=== PATIENT | female | born 1955 | race Caucasian/White ===

== ENCOUNTER 2022-03-27 07:07 | Inpatient (IN) | payer MEDICARE, MEDICAID ==
[~2022-03-27] VITALS: Ht 165.1 cm; Wt 48.1 kg
[2022-03-27] MEDS ORDERED: ONDANSETRON HCL 4MG/2ML INJ IV STA (08:35)
[2022-03-27] MEDS ORDERED: SODIUM CHLORIDE 0.9% 1,000 ML IV ONE (08:45)
[2022-03-27 09:23] LABS: BASOPHILS % 0.1 % (0.0-2.0); EOSINOPHILS % 0.1 % (0.0-5.0); HEMATOCRIT. 38.6 % (36.0-48.0); LYMPHOCYTES % 7.5 % (20.0-50.0); MEAN CORPUSCULAR HEMOGLOBIN 31.8 pg (28.0-32.0); MEAN CORPUSCULAR VOLUME 94.1 fL (81.0-99.0); MONOCYTES % 7.5 % (2.0-8.0); NEUTROPHILS % 84.8 % (40.0-76.0); PLATELET 375 x1000/uL (130-400); RED CELL DISTRIBUTION WIDTH 14.4 % (11.6-14.6)
[2022-03-27 09:30] LABS: INR 1.3; PROTHROMBIN TIME 13.3 sec (9.6-11.0)
[2022-03-27 09:51] LABS: CHLORIDE 88 mEq/L (98-107)
[2022-03-27 10:16] LABS: CLARITY URINE TURBID (CLEAR); COLOR URINE DARK YELLOW (YELLOW); KETONES URINE NEGATIVE (NEGATIVE); LEUKOCYTE ESTERASE URINE 3+ (NEGATIVE); NITRITE URINE NEGATIVE (NEGATIVE); OCCULT BLOOD URINE 3+ (NEGATIVE); PROTEIN URINE 2+ (NEGATIVE); UROBILINOGEN URINE 0.2 E.U./dL (0.2-1.0)
[2022-03-27] MEDS ORDERED: CALCIUM GLUCONATE 100MG/ML 10ML VIAL IV ONE (11:00)
[2022-03-27] MEDS ORDERED: SODIUM BICARBONATE 8.4% 1 MEQ/ML 50ML SYR IV ONE (11:00)
[2022-03-27] MEDS ORDERED: DEXTROSE 50% WATER 50ML SYRINGE IV ONE (11:00)
[2022-03-27] MEDS ORDERED: INSULIN REGULAR (HUMULIN R) 300UNITS/3ML VIAL IV ONE (11:00)
[2022-03-27] MEDS ORDERED: CEFTRIAXONE 1 G PREMIX 50 ML IV NR (11:15)
[2022-03-27] MEDS ORDERED: ALBUTEROL (0.5%) 2.5MG/0.5ML NEB HHN NR (13:30)
[2022-03-27] MEDS ORDERED: MAGNESIUM/ALUMINUM HYDROXIDE/SIMETHICONE 30ML UDC PO PRN (14:00)
[2022-03-27] MEDS ORDERED: GUAIFENESIN 200MG/10ML SUGAR FREE UDC PO PRN (14:00)
[2022-03-27] MEDS ORDERED: CLONIDINE 0.1MG TABLET PO PRN (14:00)
[2022-03-27] MEDS ORDERED: ACETAMINOPHEN 325MG TABLET PO PRN ×2 (14:00)
[2022-03-27] MEDS ORDERED: DOCUSATE SODIUM 100MG CAPSULE PO PRN (14:00)
[2022-03-27] MEDS ORDERED: IPRATROPIUM/ALBUTEROL 0.5-3(2.5)MG/3ML NEB NEB PRN (14:00)
[2022-03-27] MEDS ORDERED: TRAMADOL 50MG TABLET PO PRN (14:00)
[2022-03-27] MEDS ORDERED: NITROGLYCERIN 0.4MG TABLET SL SL PRN (14:00)
[2022-03-27] MEDS ORDERED: SODIUM CHLORIDE 0.9% 1,000 ML IV SCH (14:00)
[2022-03-27] MEDS ORDERED: VANCOMYCIN 500MG PREMIX 100 ML IV NR ×2 (15:30→19:30)
[2022-03-27 16:00] VITALS: BP 102/54
[2022-03-27] MEDS ORDERED: PIPERACILLIN/TAZ 3.375G PREMIX 50 ML IV SCH (16:45)
[2022-03-27] MEDS ORDERED: FLUCONAZOLE 150MG TABLET PO NR (17:00)
[2022-03-27 17:15] LABS: T4 FREE 1.19 ng/dL (0.76-1.46)
[2022-03-27 17:40] LABS: VITAMIN B12 SERUM > 2000.0 pg/mL (211-911)
[2022-03-27] MEDS ORDERED: SODIUM BICARBONATE 8.4% 1 MEQ/ML 50ML SYR IV NR (18:45)
[2022-03-27] MEDS ORDERED: SODIUM POLYSTYRENE SULFONATE 15 G/60 ML BOT PO NR (18:45)
[2022-03-27] MEDS: ENOXAPARIN 30MG/0.3ML SYR SUBCUT SCH (19:01)
[2022-03-27 19:51] LABS: BG BASE EXCESS 1.5 mmol/L (-2.0-2.0); BG CARBOXYHEMOGLOBIN 0.3 % (0.5-1.5); BG DEOXYHEMOGLOBIN 2.3 % (0.0-5.0); BG HCO3 ACT 23.4 mmol/L (22.0-26.0); BG METHEMOGLOBIN 0.3 % (0.0-1.5); BG OXYGEN SATURATION 97.7 % (92.0-98.5); BG OXYHEMOGLOBIN 97.1 % (94.0-97.0); BG PCO2 28.9 mmHg (35.0-45.0); BG PH 7.527 (7.350-7.450); BG PO2 95.6 mmHg (75.0-100.0); BG SAMPLE SITE RIGHT BRACHIAL; BG TOTAL HEMOGLOBIN 11.9 g/dL (12.0-18.0); BG VENT MODE ROOM AIR
[2022-03-27 20:00] VITALS: BP 111/52
[2022-03-27] MEDS ORDERED: ZOLPIDEM TARTRATE 5MG TABLET PO PRN (21:00)
[2022-03-27 21:17] VITALS: BP 111/52
[2022-03-27] MEDS: SODIUM BICARBONATE 150 MEQ in DEXTROSE 5% WATER 1,000 ML IV SCH (21:34)
[2022-03-27] MEDS: PIPERACILLIN/TAZOBACTAM 3.375 G in DEXTROSE 5% WATER 50 ML IV SCH (21:37)
[2022-03-27] MEDS ORDERED: PIPERACILLIN/TAZOBACTAM 3.375 G in DEXTROSE 5% WATER 50 ML IV SCH (22:00)
[2022-03-28] VITALS: BP 100/62
[2022-03-28] MEDS: PIPERACILLIN/TAZOBACTAM 3.375 G in DEXTROSE 5% WATER 50 ML IV SCH ×3 (00:01→21:00)
[2022-03-28] MEDS ORDERED: SODIUM POLYSTYRENE SULFONATE 15 G/60 ML BOT PO NR (01:00)
[2022-03-28] MEDS ORDERED: PANT40TA51 PO (02:40)
[2022-03-28] MEDS ORDERED: METO10TA3 PO (02:40)
[2022-03-28] MEDS ORDERED: METF-414 PO (02:40)
[2022-03-28] MEDS ORDERED: HYDR-4001 PO (02:40)
[2022-03-28 04:00] VITALS: BP 94/46
[2022-03-28 08:00] VITALS: BP 101/48
[2022-03-28] MEDS: PANTOPRAZOLE SODIUM 40 MG/VIAL IV SCH (08:27)
[2022-03-28 09:53] LABS: BG BASE EXCESS 4.1 mmol/L (-2.0-2.0); BG CARBOXYHEMOGLOBIN 0.2 % (0.5-1.5); BG DEOXYHEMOGLOBIN 3.3 % (0.0-5.0); BG HCO3 ACT 26.5 mmol/L (22.0-26.0); BG METHEMOGLOBIN 0.4 % (0.0-1.5); BG OXYGEN SATURATION 96.7 % (92.0-98.5); BG OXYHEMOGLOBIN 96.1 % (94.0-97.0); BG PCO2 32.9 mmHg (35.0-45.0); BG PH 7.524 (7.350-7.450); BG PO2 86.4 mmHg (75.0-100.0); BG SAMPLE SITE RIGHT BRACHIAL; BG TOTAL HEMOGLOBIN 13.2 g/dL (12.0-18.0); BG VENT MODE ROOM AIR
[2022-03-28 10:14] LABS: BASOPHILS % 0.2 % (0.0-2.0); EOSINOPHILS % 0.6 % (0.0-5.0); HEMATOCRIT. 32.1 % (36.0-48.0); HEMOGLOBIN. 11.1 g/dL (12.0-16.0); LYMPHOCYTES % 9.3 % (20.0-50.0); MEAN CORPUSCULAR HEMOGLOBIN 31.7 pg (28.0-32.0); MEAN CORPUSCULAR VOLUME 91.4 fL (81.0-99.0); MEAN PLATELET VOLUME 8.4 fl (7.4-10.4); MONOCYTES % 10.9 % (2.0-8.0); PLATELET 235 x1000/uL (130-400); RED BLOOD CELL COUNT 3.52 mill/uL (4.2-5.4); RED CELL DISTRIBUTION WIDTH 14.4 % (11.6-14.6)
[2022-03-28 11:41] LABS: CHLORIDE 88 mEq/L (98-107); PHOSPHORUS 4.8 mg/dL (2.5-4.9)
[2022-03-28 12:00] VITALS: BP 105/67
[2022-03-28] MEDS ORDERED: VANCOMYCIN 500MG PREMIX 100 ML IV NR (13:00)
[2022-03-28 16:00] VITALS: BP 103/47
[2022-03-28] MEDS: ENOXAPARIN 30MG/0.3ML SYR SUBCUT SCH (17:01)
[2022-03-28 20:00] VITALS: BP 96/53
[2022-03-28] MEDS ORDERED: NALOXONE HCL 0.4MG/ML VIAL IV PRN (23:30)
[2022-03-29] VITALS: BP 127/66
[2022-03-29] MEDS: SODIUM BICARBONATE 150 MEQ in DEXTROSE 5% WATER 1,000 ML IV SCH (02:57)
[2022-03-29 04:00] VITALS: BP 115/64
[2022-03-29 06:47] LABS: BASOPHILS % 0.2 % (0.0-2.0); EOSINOPHILS % 0.7 % (0.0-5.0); HEMATOCRIT. 30.7 % (36.0-48.0); HEMOGLOBIN. 10.7 g/dL (12.0-16.0); LYMPHOCYTES % 12.6 % (20.0-50.0); MEAN CORPUSCULAR HEMOGLOBIN 31.9 pg (28.0-32.0); MEAN CORPUSCULAR VOLUME 91.3 fL (81.0-99.0); MEAN PLATELET VOLUME 8.1 fl (7.4-10.4); MONOCYTES % 9.4 % (2.0-8.0); NEUTROPHILS % 77.1 % (40.0-76.0); PLATELET 207 x1000/uL (130-400); RED BLOOD CELL COUNT 3.37 mill/uL (4.2-5.4); RED CELL DISTRIBUTION WIDTH 14.1 % (11.6-14.6)
[2022-03-29 07:39] LABS: CREATINE KINASE 13 IU/L (26-192); PHOSPHORUS 3.8 mg/dL (2.5-4.9)
[2022-03-29 08:00] VITALS: BP 110/74
[2022-03-29 08:21] LABS: CHLORIDE 81 mEq/L (98-107)
[2022-03-29 08:47] LABS: BG BASE EXCESS 11.1 mmol/L (-2.0-2.0); BG CARBOXYHEMOGLOBIN 0.3 % (0.5-1.5); BG DEOXYHEMOGLOBIN 3.7 % (0.0-5.0); BG FRACTION INSPIRED OXYGEN 21; BG HCO3 ACT 34.4 mmol/L (22.0-26.0); BG METHEMOGLOBIN 0.4 % (0.0-1.5); BG OXYGEN SATURATION 96.3 % (92.0-98.5); BG OXYHEMOGLOBIN 95.6 % (94.0-97.0); BG PCO2 40.2 mmHg (35.0-45.0); BG PO2 81.9 mmHg (75.0-100.0); BG SAMPLE SITE RIGHT RADIAL; BG TOTAL HEMOGLOBIN 11.5 g/dL (12.0-18.0); BG VENT MODE ROOM AIR
[2022-03-29] MEDS ORDERED: KCL 20MEQ/100ML PREMIX 100 ML IV ONE (09:00)
[2022-03-29] MEDS ORDERED: POTASSIUM CHLORIDE 20MEQ TABLET SR PO NR (09:00)
[2022-03-29] MEDS: PIPERACILLIN/TAZOBACTAM 3.375 G in DEXTROSE 5% WATER 50 ML IV SCH ×2 (09:04→21:43)
[2022-03-29] MEDS: PANTOPRAZOLE SODIUM 40 MG/VIAL IV SCH (09:06)
[2022-03-29] MEDS: KCL 20MEQ/100ML PREMIX 100 ML IV SCH ×4 (09:38→18:35)
[2022-03-29] MEDS ORDERED: HYDROCODONE/ACETAMINOPHEN 10/325MG TABLET PO PRN (11:15)
[2022-03-29 12:00] VITALS: BP 105/54
[2022-03-29] MEDS: ONDANSETRON HCL 4MG/2ML INJ IV PRN (12:08)
[2022-03-29 13:07] LABS: A/G RATIO 0.5 (0.7-1.7); ALBUMIN 2.2 g/dL (2.9-4.4); ALPHA-1-GLOBULIN 0.4 g/dL (0.0-0.4); BETA GLOBULIN 0.7 g/dL (0.7-1.3); GAMMA GLOBULINS 2.7 g/dL (0.4-1.8); GLOBULIN TOTAL 4.7 g/dL (2.2-3.9); M-SPIKE Not Observed g/dL (Not Observed); TOTAL PROTEIN SERUM 6.9 g/dL (6.0-8.5)
[2022-03-29] MEDS ORDERED: SODIUM CHLORIDE 0.9% 1,000 ML IV SCH (14:30)
[2022-03-29] MEDS: SODIUM CHLORIDE 0.9% 1,000 ML IV SCH ×2 (15:45→19:55)
[2022-03-29 15:57] LABS: HEPATITIS B SURFACE ANTIGEN NEGATIVE
[2022-03-29 16:00] VITALS: BP 94/64
[2022-03-29] MEDS ORDERED: MORPHINE SULFATE 2 MG/ML CPJ (NOT FOR IM USE) IV PRN (17:00)
[2022-03-29] MEDS: LIDOCAINE 5% PATCH TOP SCH (17:00)
[2022-03-29] MEDS: ENOXAPARIN 30MG/0.3ML SYR SUBCUT SCH (18:34)
[2022-03-29 20:00] VITALS: BP 116/46
[2022-03-30] VITALS: BP 103/51
[2022-03-30 04:00] VITALS: BP 137/75
[2022-03-30 06:15] LABS: BASOPHILS % 0.3 % (0.0-2.0); EOSINOPHILS % 0.8 % (0.0-5.0); HEMOGLOBIN. 10.8 g/dL (12.0-16.0); LYMPHOCYTES % 9.7 % (20.0-50.0); MEAN CORPUSCULAR HEMOGLOBIN 31.8 pg (28.0-32.0); MEAN CORPUSCULAR VOLUME 91.6 fL (81.0-99.0); MEAN PLATELET VOLUME 8.1 fl (7.4-10.4); MONOCYTES % 9.4 % (2.0-8.0); NEUTROPHILS % 79.8 % (40.0-76.0); PLATELET 177 x1000/uL (130-400); RED BLOOD CELL COUNT 3.39 mill/uL (4.2-5.4); RED CELL DISTRIBUTION WIDTH 13.9 % (11.6-14.6)
[2022-03-30 06:26] LABS: CHLORIDE 90 mEq/L (98-107)
[2022-03-30 06:44] LABS: PHOSPHORUS 3.1 mg/dL (2.5-4.9)
[2022-03-30 08:00] VITALS: BP 116/61
[2022-03-30] MEDS: ONDANSETRON HCL 4MG/2ML INJ IV PRN (08:59)
[2022-03-30] MEDS: FAMOTIDINE 20MG/2ML VIAL IV SCH (08:59)
[2022-03-30] MEDS: LIDOCAINE 5% PATCH TOP SCH (09:00)
[2022-03-30 09:10] LABS: HIV SCREEN 4G Non Reactive (Non Reactive)
[2022-03-30] MEDS: SODIUM CHLORIDE 0.9% 1,000 ML IV SCH ×3 (09:15→18:24)
[2022-03-30] MEDS: PIPERACILLIN/TAZOBACTAM 3.375 G in DEXTROSE 5% WATER 50 ML IV SCH ×2 (09:27→21:13)
[2022-03-30] MEDS ORDERED: KCL 20MEQ/100ML PREMIX 100 ML IV NR (11:00)
[2022-03-30 12:00] VITALS: BP 121/59
[2022-03-30] MEDS: FLUCONAZOLE 100MG TABLET PO SCH (12:14)
[2022-03-30] MEDS: ENOXAPARIN 30MG/0.3ML SYR SUBCUT SCH (15:57)
[2022-03-30 16:00] VITALS: BP 118/60
[2022-03-30 20:00] VITALS: BP 108/57
[2022-03-31] VITALS: BP 117/54
[2022-03-31] MEDS: SODIUM CHLORIDE 0.9% 1,000 ML IV SCH ×2 (03:15→13:15)
[2022-03-31 04:00] VITALS: BP 128/84
[2022-03-31 06:30] LABS: BASOPHILS % 0.6 % (0.0-2.0); EOSINOPHILS % 0.7 % (0.0-5.0); HEMATOCRIT. 33.9 % (36.0-48.0); HEMOGLOBIN. 11.6 g/dL (12.0-16.0); LYMPHOCYTES % 11.3 % (20.0-50.0); MEAN CORPUSCULAR HEMOGLOBIN 31.6 pg (28.0-32.0); MEAN CORPUSCULAR VOLUME 92.7 fL (81.0-99.0); MEAN PLATELET VOLUME 8.2 fl (7.4-10.4); MONOCYTES % 9.5 % (2.0-8.0); NEUTROPHILS % 77.9 % (40.0-76.0); PLATELET 176 x1000/uL (130-400); RED BLOOD CELL COUNT 3.66 mill/uL (4.2-5.4); RED CELL DISTRIBUTION WIDTH 14.5 % (11.6-14.6)
[2022-03-31 08:00] VITALS: BP 108/55
[2022-03-31] MEDS: FAMOTIDINE 20MG/2ML VIAL IV SCH (08:53)
[2022-03-31] MEDS: FLUCONAZOLE 100MG TABLET PO SCH (08:53)
[2022-03-31] MEDS: PIPERACILLIN/TAZOBACTAM 3.375 G in DEXTROSE 5% WATER 50 ML IV SCH ×2 (08:55→20:31)
[2022-03-31] MEDS: LIDOCAINE 5% PATCH TOP SCH (08:55)
[2022-03-31 10:08] LABS: PHOSPHORUS 2.6 mg/dL (2.5-4.9)
[2022-03-31] MEDS ORDERED: FLUC100T MT (10:49)
[2022-03-31] MEDS ORDERED: LEVO-65 MT (10:49)
[2022-03-31 12:00] VITALS: BP 103/84
[2022-03-31] MEDS ORDERED: VANCOMYCIN 1,000 MG in DEXT 5% WATER 250 ML IV SCH (13:00)
[2022-03-31] MEDS ORDERED: POTASSIUM CHLORIDE 20MEQ/PACKET PO NR (15:30)
[2022-03-31] MEDS: ENOXAPARIN 30MG/0.3ML SYR SUBCUT SCH (15:51)
[2022-03-31 16:00] VITALS: BP 148/74
[2022-03-31 20:00] VITALS: BP 112/54
[2022-04-01] VITALS: BP 119/54
[2022-04-01] MEDS: SODIUM CHLORIDE 0.9% 1,000 ML IV SCH ×3 (01:25→20:21)
[2022-04-01 04:00] VITALS: BP 130/74
[2022-04-01] MEDS: FLUCONAZOLE 100MG TABLET PO SCH (08:55)
[2022-04-01] MEDS: PIPERACILLIN/TAZOBACTAM 3.375 G in DEXTROSE 5% WATER 50 ML IV SCH (08:55)
[2022-04-01] MEDS: FAMOTIDINE 20MG/2ML VIAL IV SCH (08:55)
[2022-04-01] MEDS: LIDOCAINE 5% PATCH TOP SCH (08:58)
[2022-04-01 09:08] LABS: HEMATOCRIT 33.5 % (36.0-48.0); HEMOGLOBIN 11.5 g/dL (12.0-16.0); MEAN CORPUSCULAR HEMOGLOBIN 31.7 pg (28.0-32.0); MEAN CORPUSCULAR VOLUME 92.7 fL (81.0-99.0); PLATELET 160 x1000/uL (130-400); RED BLOOD CELL COUNT 3.61 mill/uL (4.2-5.4); RED CELL DISTRIBUTION WIDTH 14.1 % (11.6-14.6)
[2022-04-01 10:05] LABS: PHOSPHORUS 1.9 mg/dL (2.5-4.9)
[2022-04-01] MEDS ORDERED: POTASSIUM-SODIUM PHOSPHATE POWDER PACKET PO NR (11:45)
[2022-04-01 12:00] VITALS: BP 122/67
[2022-04-01] MEDS ORDERED: POTASSIUM-SODIUM PHOSPHATE POWDER PACKET PO SCH (12:00)
[2022-04-01] MEDS: CEPHALEXIN 250MG CAPSULE PO SCH ×2 (13:42→18:22)
[2022-04-01 16:00] VITALS: BP 140/84
[2022-04-01] MEDS: ONDANSETRON HCL 4MG/2ML INJ IV PRN (18:22)
[2022-04-01] MEDS: POTASSIUM-SODIUM PHOSPHATE POWDER PACKET PO SCH (18:22)
[2022-04-01] MEDS: ENOXAPARIN 30MG/0.3ML SYR SUBCUT SCH (18:22)
[2022-04-01 20:00] VITALS: BP 133/57
[2022-04-02] VITALS: BP 140/66
[2022-04-02 04:00] VITALS: BP 144/77
[2022-04-02] MEDS: SODIUM CHLORIDE 0.9% 1,000 ML IV SCH (05:08)
[2022-04-02 07:19] LABS: BASOPHILS % 0.6 % (0.0-2.0); HEMATOCRIT. 32.9 % (36.0-48.0); HEMOGLOBIN. 11.3 g/dL (12.0-16.0); LYMPHOCYTES % 12.5 % (20.0-50.0); MEAN CORPUSCULAR HEMOGLOBIN 31.7 pg (28.0-32.0); MEAN CORPUSCULAR VOLUME 92.5 fL (81.0-99.0); MEAN PLATELET VOLUME 8.7 fl (7.4-10.4); MONOCYTES % 10.3 % (2.0-8.0); NEUTROPHILS % 75.6 % (40.0-76.0); PLATELET 151 x1000/uL (130-400); RED BLOOD CELL COUNT 3.55 mill/uL (4.2-5.4); RED CELL DISTRIBUTION WIDTH 14.2 % (11.6-14.6)
[2022-04-02 07:28] LABS: CHLORIDE 103 mEq/L (98-107)
[2022-04-02 07:37] LABS: PHOSPHORUS 2.2 mg/dL (2.5-4.9)
[2022-04-02 08:04] VITALS: BP 137/68
[2022-04-02] MEDS: FLUCONAZOLE 100MG TABLET PO SCH (08:22)
[2022-04-02] MEDS: POTASSIUM-SODIUM PHOSPHATE POWDER PACKET PO SCH ×2 (08:22→20:22)
[2022-04-02] MEDS: CEPHALEXIN 250MG CAPSULE PO SCH ×2 (08:22→16:16)
[2022-04-02] MEDS: FAMOTIDINE 20MG/2ML VIAL IV SCH (08:22)
[2022-04-02] MEDS ORDERED: POTASSIUM CHLORIDE 20MEQ/PACKET PO NR ×2 (09:45→16:00)
[2022-04-02] MEDS ORDERED: POTASSIUM-SODIUM PHOSPHATE POWDER PACKET PO SCH (09:45)
[2022-04-02] MEDS: ONDANSETRON HCL 4MG/2ML INJ IV PRN ×2 (10:41→16:18)
[2022-04-02] MEDS: LIDOCAINE 5% PATCH TOP SCH (10:42)
[2022-04-02] MEDS ORDERED: MAGNESIUM 2 G PREMIX 50 ML IV NR (11:00)
[2022-04-02 12:10] VITALS: BP 140/78
[2022-04-02 16:05] VITALS: BP 130/75
[2022-04-02] MEDS: ENOXAPARIN 30MG/0.3ML SYR SUBCUT SCH (16:16)
[2022-04-02 20:00] VITALS: BP 132/74
[2022-04-03] VITALS: BP 140/68
[2022-04-03 04:00] VITALS: BP 147/70
[2022-04-03 06:25] LABS: BASOPHILS % 0.6 % (0.0-2.0); EOSINOPHILS % 0.7 % (0.0-5.0); HEMATOCRIT. 32.6 % (36.0-48.0); HEMOGLOBIN. 11.1 g/dL (12.0-16.0); LYMPHOCYTES % 11.6 % (20.0-50.0); MEAN CORPUSCULAR HEMOGLOBIN 31.5 pg (28.0-32.0); MEAN CORPUSCULAR VOLUME 92.5 fL (81.0-99.0); MEAN PLATELET VOLUME 8.2 fl (7.4-10.4); MONOCYTES % 10.8 % (2.0-8.0); NEUTROPHILS % 76.3 % (40.0-76.0); PLATELET 127 x1000/uL (130-400); RED BLOOD CELL COUNT 3.53 mill/uL (4.2-5.4); RED CELL DISTRIBUTION WIDTH 14.3 % (11.6-14.6)
[2022-04-03 07:25] LABS: CHLORIDE 106 mEq/L (98-107)
[2022-04-03 07:44] LABS: PHOSPHORUS 2.9 mg/dL (2.5-4.9)
[2022-04-03 08:00] VITALS: BP 148/67
[2022-04-03] MEDS: POTASSIUM-SODIUM PHOSPHATE POWDER PACKET PO SCH (08:30)
[2022-04-03] MEDS: CEPHALEXIN 250MG CAPSULE PO SCH (08:30)
[2022-04-03] MEDS: FLUCONAZOLE 100MG TABLET PO SCH (08:30)
[2022-04-03] MEDS: FAMOTIDINE 20MG/2ML VIAL IV SCH (08:30)
[2022-04-03] MEDS: LIDOCAINE 5% PATCH TOP SCH (08:31)
[2022-04-03 12:00] VITALS: BP 126/66
[2022-04-03 13:07] LABS: ATYPICAL P-ANCA <1:20 titer (Neg:<1:20); CYTOPLASMIC C-ANCA <1:20 titer (Neg:<1:20); PERINUCLEAR P-ANCA <1:20 titer (Neg:<1:20)
[2022-04-03 16:00] VITALS: BP 132/69
[2022-04-03 16:57] VITALS: BP 126/66
== END 2022-04-03 17:45 | disposition home or self-care (01) | DRG 871 ==
LOC: ER 07:07 → 7WST 12:51 → EDBEDREQTM 12:56 → EDBEDREQ 12:56
PROVIDERS: ADMIT Internal Medicine; ATTEND Internal Medicine
DX: A41.9 Sepsis, unspecified organism (principal); E43 Unspecified severe protein-calorie malnutrition; K83.1 Obstruction of bile duct; N17.0 Acute kidney failure with tubular necrosis; C22.1 Intrahepatic bile duct carcinoma; E87.20 Acidosis, unspecified; E87.1 Hypo-osmolality and hyponatremia; Z68.1 Body mass index [BMI] 19.9 or less, adult; N13.30 Unspecified hydronephrosis; Z51.5 Encounter for palliative care; N18.9 Chronic kidney disease, unspecified; E87.5 Hyperkalemia; I12.9 Hypertensive chronic kidney disease with stage 1 through stage 4 chronic kidney disease, or unspecified chronic kidney disease; E78.5 Hyperlipidemia, unspecified; E87.6 Hypokalemia; B37.31 Acute candidiasis of vulva and vagina; D63.1 Anemia in chronic kidney disease; E11.22 Type 2 diabetes mellitus with diabetic chronic kidney disease; I95.9 Hypotension, unspecified; E83.39 Other disorders of phosphorus metabolism; Z85.05 Personal history of malignant neoplasm of liver; Z83.3 Family history of diabetes mellitus; Z82.49 Family history of ischemic heart disease and other diseases of the circulatory system
CPT/HCPCS: 36415; 36600; 71045; 71250; 72146; 72148; 74176; 76770; 80048; 80053; 80061; 80202; 81003; 82375; 82550; 82607; 82746; 82805; 82962; 83036; 83520; 83540; 83550; 83605; 83735; 83930; 84100; 84155; 84165; 84439; 84443; 84484; 85025; 85027; 85379; 86160; 86256; 86705; 86709; 86803; 87077; 87186; 87340; 87389; 93005; 93306; 93970; 97110; 97116; 97162; 97166; 97530; 99291; A6261; C9113; J0610; J0696; J1650; J1815; J2405; J2543; J3370; J3475; J3480; J3490; J7030; J7060; J7070